=== PATIENT | male | born 1975 | race Caucasian/White ===

== ENCOUNTER 2020-07-11 22:43 | Emergency (ER) | payer MEDICAID ==
[2020-07-11 22:57] VITALS: BP 172/97; PULSE 79
--- NOTE | 2020-07-11 23:01 | EDM.PDOC ---
ED HPI GENERAL MEDICAL PROBLEM - General Chief Complaint: Upper Extremity Injury/Pain Stated Complaint: FELL ON LEFT WRIST Time Seen by Provider: 07/11/20 22:54 Source of Information: Reports: Patient, Family History Limitations: Reports: No Limitations - History of Present Illness INITIAL COMMENTS - FREE TEXT/NARRATIVE: Fortino is a 45-year-old male sending to the ED for evaluation of left wrist pain, deformity, and swelling. Patient was in his usual state of health when he was walking outside and slipped on the ice falling and outstretched left hand. He immediately had pain and swelling over the distal radius with reduced range of motion of the wrist. [place] any distal numbness or tingling. The injury occurred at 2000 hrs. He denies any other injury. Left Wrist Pain Score (Numeric/FACES): 5 - Related Data Allergies Allergy/AdvReac Type Severity Reaction Status Date / Time codeine Allergy Itching Verified 07/11/20 23:00 Home Meds: Home Meds LORazepam 0.5 mg PO BID PRN 10/01/14 [History] atenoloL [Atenolol] 1 tab PO BID 10/01/14 [History] QUEtiapine [SEROquel] 1 - 2 tab PO BID 07/11/20 [History] Past Medical History Other HEENT History: claustiotoma (ear tumor) Cardiovascular History: Reports: Hypertension Respiratory History: Reports: Bronchitis, Recurrent Gastrointestinal History: Reports: GERD Musculoskeletal History: Reports: Back Pain, Chronic, Fracture Neurological History: Reports: Concussion, Vertigo Psychiatric History: Reports: Anxiety, Depression, Panic Attack - Infectious Disease History Infectious Disease History: Reports: Chicken Pox Social & Family History - Caffeine Use Caffeine Use: Reports: Soda Review of Systems - Review of Systems Review Of Systems: See Below Constitutional: Reports: No Symptoms Eyes: Reports: No Symptoms Ears: Reports: No Symptoms Nose: Reports: No Symptoms Mouth/Throat: Reports: No Symptoms Respiratory: Reports: No Symptoms Cardiovascular: Reports: No Symptoms GI/Abdominal: Reports: No Symptoms Genitourinary: Reports: No Symptoms Musculoskeletal: Reports: Joint Pain (Left wrist), Joint Swelling (Wrist over the dorsal distal radius) Skin: Reports: No Symptoms Neurological: Reports: No Symptoms. Denies: Numbness, Tingling Psychiatric: Reports: No Symptoms ED EXAM, GENERAL - Physical Exam Exam: See Below Exam Limited By: No Limitations General Appearance: Alert, Mild Distress Eye Exam: Bilateral Eye: EOMI, PERRL Head: Atraumatic, Normocephalic Extremities: Normal Capillary Refill, Joint Swelling (Swelling over the distal left radius), Limited Range of Motion (Limited flexion and extension of the left wrist), Other (Entered is to palpation over the distal radius and ulna) Neurological: Alert, Oriented, Normal Cognition, No Motor/Sensory Deficits Psychiatric: Normal Affect Skin Exam: Warm, Dry, Intact, Normal Color Course - Vital Signs Last Recorded V/S: Last Vital Signs Temp 35.7 C L 07/11/20 22:56 Pulse 79 07/11/20 22:56 Resp 18 07/11/20 22:56 BP 172/97 H 07/11/20 22:56 Pulse Ox 96 07/11/20 22:56 - Orders/Labs/Meds Orders: Active Orders 24 hr Category Date Time Status Wrist Comp Min 3V Lt [CR] Stat Exams 07/11/20 22:54 Taken - Radiology Interpretation Free Text/Narrative:: Reviewed the three-view x-ray of the right wrist. There is no evidence for acute fracture of the radius or ulna. There is a little sclerotic density at the mid waist of the scaphoid bone, however, there is no disruption of the cortex of this bone. The patient does not exhibit any pain over the snuffbox which would be worrisome for a scaphoid fracture. - Re-Assessments/Exams Free Text/Narrative Re-Assessment/Exam: 07/11/20 23:22 view of the x-ray, it appears that the patient may have suffered a sprain of the left wrist. We discussed management of this including the use of a thumb spica Velcro splint, ice and elevation, and ibuprofen or Tylenol for pain control. He will likely need the splint for about a week. After that he may turn to normal activity as tolerated. Indications to return to the ED were discussed with the patient and he was suitable for discharge in satisfactory condition. Departure - Departure Time of Disposition: 23:23 Disposition: Home, Self-Care 01 Condition: Good Clinical Impression: Sprain of left wrist Qualifiers: Encounter type: initial encounter Qualified Code(s): S63.502A - Unspecified sprain of left wrist, initial encounter - Discharge Information *PRESCRIPTION DRUG MONITORING PROGRAM REVIEWED*: Not Applicable *COPY OF PRESCRIPTION DRUG MONITORING REPORT IN PATIENT OSMANY: Not Applicable Instructions: Wrist Sprain With Rehab-[facility] Referrals: Darrni De La Cruz MD [Primary Care Provider] - Forms: ED Department Discharge Care Plan Goals: Please wear the thumb spica splint for the next week. This will help reduce undue stress on the joint. Continue to ice, elevate, rest the wrist. You may take ibuprofen or Tylenol for pain control. Return to the ED should you develop any numbness or tingling in the hand, blueness in the fingers or coolness of the hand. Sepsis Event Note (ED) - Evaluation Sepsis Screening Result: No Definite Risk - Focused Exam Vital Signs: Vital Signs Temp Pulse Resp BP Pulse Ox 07/11/20 22:56 35.7 C L 79 18 172/97 H 96 - Problem List & Annotations (1) Sprain of left wrist SNOMED Code(s): 98163779 Code(s): S63.502A - UNSPECIFIED SPRAIN OF LEFT WRIST, INITIAL ENCOUNTER Status: Acute Priority: Medium Current Visit: Yes Qualifiers: Encounter type: initial encounter Qualified Code(s): S63.502A - Unspecified sprain of left wrist, initial encounter - Problem List Review Problem List Initiated/Reviewed/Updated: Yes - My Orders Last 24 Hours: My Active Orders 07/11/20 22:54 Wrist Comp Min 3V Lt [CR] Stat - Assessment/Plan Last 24 Hours: My Active Orders 07/11/20 22:54 Wrist Comp Min 3V Lt [CR] Stat
--- NOTE | 2020-07-11 23:26 | CRLCR ---
HISTORY: Pain and deformity after fall on ice. COMPARISON: None available. FINDINGS: AP, lateral, and oblique views of the left wrist are obtained for a total of three views. There is no sign of fracture or dislocation. The bones of the carpus are in anatomic alignment with the distal radius. No degenerative disease is seen. The soft tissues are normal in appearance with no sign of foreign body. IMPRESSION: Normal left wrist. Dictated by Samir Soria MD @ Jul 11 2020 11:23PM Signed by Dr. Samir Soria @ Jul 11 2020 11:24PM
== END 2020-07-11 23:31 | disposition home or self-care (01) ==
LOC: JP.ED 22:43
DX: S63.502A Unspecified sprain of left wrist, initial encounter (principal); I10 Essential (primary) hypertension; Z88.5 Allergy status to narcotic agent; Z79.899 Other long term (current) drug therapy; W00.0XXA Fall on same level due to ice and snow, initial encounter; Y93.01 Activity, walking, marching and hiking
CPT/HCPCS: 73110-LT; 99283

== ENCOUNTER 2021-09-07 07:46 | Emergency (ER) | payer MEDICAID ==
[2021-09-07 08:09] VITALS: BP 167/99; PULSE 93
[2021-09-07 09:04] LABS: CORONAVIRUS COVID-19 NAA NEGATIVE (NEGATIVE)
== END 2021-09-07 09:48 | disposition home or self-care (01) ==
LOC: JP.ED 07:46
DX: J21.8 Acute bronchiolitis due to other specified organisms (principal); I10 Essential (primary) hypertension; Z79.899 Other long term (current) drug therapy; Z88.5 Allergy status to narcotic agent; Z20.822 Contact with and (suspected) exposure to COVID-19
CPT/HCPCS: 0241U; 99284